=== PATIENT | male | born 1985 | race Caucasian/White ===

== ENCOUNTER 2020-05-04 09:12 | Emergency (ER) | payer OTHER, SELFPAY ==
[2020-05-04 09:35] VITALS: BP 153/99; PULSE 75; RESP 16; TEMP 35.8; O2SAT 100
--- NOTE | 2020-05-04 09:57 | ED.GENADULT ---
HPI - General Adult General Chief complaint: Back Pain/Injury Stated complaint: Back Pain Time Seen by Provider: 05/04/20 09:40 Source: patient and RN notes reviewed Mode of arrival: ambulatory Limitations: no limitations History of Present Illness HPI narrative: 34-year-old male presents with complaints of LT lower back pain for the past 7 days. Zander reports been cleaning out a family member home, removing heavy boxes and furniture and over the last 2-3 days lower back pain has been increasing. ES Tylenol with little to no relief. Denies new injuries or falls. Intermittent radiating upward pain with constant movement and lifting. Denies numbness or tingling. Denies fever or chills. No upper or lower extremity pain or weakness. Exacerbating factors consist of certain movements, prolong standing, and bending. Denies nausea, vomiting, or abdominal pain. Tolerating po intake well. Denies problems with urinating or having a bowel movement, LBM 05/03/20 per patient and normal. No flank pain or hematuria or dysuria. The patient reports he have not been diagnosed with COVID-19. The patient reports he is not waiting for the results of a COVID-19 lab test. The patient reports he do not have chills, weakness, or fatigue. The patient reports he do not have a new or worsening cough or shortness of breath. Denies chest pain. The patient reports he do not have any rhinorrhea, congestion, loss of taste or smell, sore throat, or diarrhea. Denies recent traveling. Denies concerns for COVID-19 or exposures been home with limited outdoor exposure except for essential household needs, work, and return home. At this time, patient is not suspected of having COVID-19. Some parts of this dictation were generated by voice recognition software and may contain typographical and/or grammatical inaccuracies. Related Data Allergies Allergy/AdvReac Type Severity Reaction Status Date / Time No Known Allergies Allergy Verified 08/25/14 17:32 Review of Systems Review of Systems: Narrative: CONSTITUTIONAL: Denies fever, chills, sweats. EYES: Denies visual changes, redness, discharge. ENT: Denies rhinorrhea, congestion, sore throat, otalgia. CARDIOVASCULAR: Denies chest pain, palpitations, edema. RESPIRATORY: Denies dyspnea, wheezing, cough. GASTROINTESTINAL: Denies abdominal pain, nausea, vomiting, diarrhea. GENITOURINARY: Denies dysuria, hematuria, abnormal discharge. SKIN: Denies rash or itching. MUSCULOSKELETAL: Complains of LT lower back pain. Denies joint pain or myalgia. NEUROLOGIC: Denies numbness or focal weakness. PSYCHIATRIC: Denies anxiety or depression. All systems reviewed & are unremarkable except as noted in HPI and below PMFSH Past Medical History Medical History External hemorrhoid Smoker Surgical History Surgical History (Updated 05/04/20 @ 10:11 by CHELY Knight) History of dental surgery extraction of all teeth at age 24 due to poor dental care History of hemorrhoidectomy Family History Family History (Updated 05/04/20 @ 10:15 by CHELY Knight) Father Medical history unknown Mother Alive and well Grandparent , 2012 Hypertension Diabetes mellitus Grandparent , 03/2020 Smoker in home Social History Social History (Updated 05/04/20 @ 10:16 by CHELY Knight) Years smoked: 23 Smoking status: Current every day smoker Tobacco type: cigarettes Second hand tobacco smoke exposure: No Alcohol intake: current Substance use: current Substance use type: marijuana Living arrangements: with family Occupation/Education: occupation Gender identity (if verbalized by the patient): Male Sexual Orientation (if Verbalized by the Patient): Straight or Heterosexual Comments At time of signature, agree with nurse past medical, surgical, social, and family history. There is no relevant family history pertinent to the presenting
[2020-05-04 10:05] VITALS: BP 110/84
== END 2020-05-04 10:05 | disposition home or self-care (01) ==
PROVIDERS: Emergency Provider Nurse Practitioner Family
DX: M54.5 Low back pain (principal); F17.210 Nicotine dependence, cigarettes, uncomplicated
CPT/HCPCS: 99213; G0463

== ENCOUNTER 2021-12-02 12:52 | Emergency (ER) | payer BC, SELFPAY ==
[2021-12-02 12:54] VITALS: BP 154/94; PULSE 90; RESP 16; TEMP 36.4; O2SAT 99
--- NOTE | 2021-12-02 13:46 | ED.SKABFB ---
HPI - Skin/Abscess/Foreign Bdy General Chief complaint: Skin/Abscess/Foreign Body Stated complaint: abscess on buttocks Time Seen by Provider: 12/02/21 13:04 History of Present Illness HPI narrative: Patient is a 36-year-old male who presents ER with concern for abscess. He noticed a small knot on the left inner buttock near his rectum 3 days ago. Its been increasing in size and pain. No drainage. No fevers or chills or sweats. Related Data Allergies Allergy/AdvReac Type Severity Reaction Status Date / Time No Known Allergies Allergy Verified 08/25/14 17:32 Review of Systems Constitutional: Constitutional: Denies chills and Denies fever(s) Integumentary/Breasts: Skin/Breast: Denies erythema and Denies rash Comments: Perirectal bump PMFSH Past Medical History Medical History External hemorrhoid Smoker Surgical History Surgical History (Updated 05/04/20 @ 10:11 by CHELY Knight) History of dental surgery extraction of all teeth at age 24 due to poor dental care History of hemorrhoidectomy Family History Family History (Updated 05/04/20 @ 10:15 by CHELY Knight) Father Medical history unknown Mother Alive and well Grandparent , 2012 Hypertension Diabetes mellitus Grandparent , 03/2020 Smoker in home Social History Social History (Updated 05/04/20 @ 10:16 by CHELY Knight) Years smoked: 23 Smoking status: Current every day smoker Tobacco type: cigarettes Second hand tobacco smoke exposure: No Alcohol intake: current Substance use: current Substance use type: marijuana Gender identity (if verbalized by the patient): Male Sexual Orientation (if Verbalized by the Patient): Straight or Heterosexual Exam Narrative: GENERAL: Well-appearing, well-nourished, and in no acute distress. HEAD: Normocephalic, atraumatic. Rectal: Small abscess developing at that 12 o'clock position with patient laying in the right lateral decubitus position. No surrounding cellulitis. A few nonthrombosed noninflamed external hemorrhoids noted EXTREMITIES: Normal range of motion. No edema. SKIN: Warm, dry, no rash. NEURO: No focal deficits. Alert and oriented x3. PSYCH: Normal mood and affect. Course Course Emergency Course: Abscess/cyst drained. Discharged with Bactrim. Follow-up with general surgery. Vital Signs Vital signs: Vital Signs Temperature 97.6 F 12/02/21 12:54 Pulse Rate 90 12/02/21 12:54 Respiratory Rate 16 12/02/21 12:54 Blood Pressure 154/94 H 12/02/21 12:54 Pulse Oximetry 99 12/02/21 12:54 Oxygen Delivery Room Air 12/02/21 12:54 Temperature 97.6 F 12/02/21 12:54 Pulse Rate 90 12/02/21 12:54 Respiratory Rate 16 12/02/21 12:54 Blood Pressure 154/94 H 12/02/21 12:54 Pulse Oximetry 99 12/02/21 12:54 Oxygen Delivery Room Air 12/02/21 12:54 Procedures Abscess I/D ramesh-rectal: Date of Incision: 12/02/21 Time of Incision: 13:40 Local Anesthetic: lidocaine 1% and with epi Amount of anesthesia used (mL): 2 Technique: incised with #11 blade Packing used?: iodoform I&D Results: Pus Discharge Plan Discharge Clinical Impression: Ramesh-rectal abscess Patient Disposition: Home, Self-Care Condition: Stable Instructions: Abscess (ED) Additional Instructions: You had an abscess that was incised and drained. Take your antibiotic for 1 week. Follow-up with general surgery for further evaluation. There may be a cystic cavity that needs to be removed. Prescriptions: New sulfamethoxazole-trimethoprim [Bactrim DS] 800-160 mg tablet 1 tablet PO Q12H Qty: 14 0RF No Action ibuprofen 600 mg tablet 600 mg PO QID PRN (Reason: pain) Qty: 30 0RF cyclobenzaprine 10 mg tablet 10 mg PO BID PRN (Reason: muscle spasm) Qty: 20 0RF Follow-up/Referrals: UNKNOWN,DOCTOR [Primary Care Provider] - Santosh Lainez
== END 2021-12-02 14:39 | disposition home or self-care (01) ==
PROVIDERS: Emergency Provider Emergency Medicine
DX: K61.1 Rectal abscess (principal); F17.210 Nicotine dependence, cigarettes, uncomplicated
CPT/HCPCS: 46040; 99283